=== PATIENT | male | born 1980 | race Caucasian/White ===

== ENCOUNTER → 2018-05-05 | Outpatient (CLI) | payer OTHER ==
--- NOTE | 2018-05-05 17:19 | Diagnostic Imaging Report ---
Hepatobiliary Scan with Gallbladder Ejection Fraction Clinical information: 37 M with upper abdominal pain Technique: Following intravenous administration of 7 millicuries of Tc-99m mebrofenin, dynamic images of the abdomen in the anterior projection were obtained through 30 minutes. Vwnx-gav-vwyj milk12 ounces was taken orally as a secretagogue for determination of gallbladder ejection fraction. Imaging was continued for 60 minutes. Discussion: Perfusion of the liver is normal. Extraction of tracer by the liver parenchyma is normal. Tracer appears promptly within the biliary tract. The gallbladder begins to fill at 5 minutes post injection of tracer and fills adequately. Tracer is seen in the small bowel by 30 minutes. The gallbladder ejection fraction following ingestion of the fatty drink is 29% (normal >25%). Impression: 1. Filling of the gallbladder excludes acute cystic duct obstruction/acute cholecystitis. 2. The normal gallbladder ejection fraction following the fatty drink of 29% is normal and does not support the clinical diagnosis of chronic cholecystitis/gallbladder dyskinesia. 3. Note that sincalide is temporarily unavailable. A fatty drink containing at least 11 grams fat is used as an alternative secretagogue. Signed by: Dr. Autumn Sotelo M.D. on 05/05/2018 5:15 PM
== END ==
LOC: NM 11:16
PROVIDERS: ATTEND Family Medicine
DX: R10.10 Upper abdominal pain, unspecified (principal)
CPT/HCPCS: 78227; A9537

== ENCOUNTER → 2018-05-26 | Day surgery (SDC) | payer OTHER ==
[~2018-05-26] MED LIST: DONNATAL/LIDOCAINE/MAALOX 30 ML SUSP PO NR; FENTANYL CITRATE/PF 100MCG/2 ML INJ ONE; LIDOCAINE HCL 2% LOCAL INJ 5 ML SDV VIAL INJ ONE; MIDAZOLAM HCL 5 MG/ML VIAL ONE; MORPHINE SULFATE 2 MG/ML SYR ONE; PANTOPRAZOLE INJ 80 MG in SODIUM CHLORIDE 0.9% 100 ML IV ONE; PANTOPRAZOLE SO40 MG PO; PROPOFOL IV EMULSION 10 MG/ML 50 ML VIAL ONE; SODIUM CHLORIDE 0.9% 50ML 50 ML ONE; SUCRALFATE1 GM PO; TYLENOL WITH C1 EACH PO; ZOFRAN ODT4 MG
--- NOTE | 2018-05-26 19:44 | Operative Report ---
DATE OF PROCEDURE: May 26, 2018 REFERRING PHYSICIAN: Dr. Amauri Osuna PROCEDURES PERFORMED 1. Esophagogastroduodenoscopy with biopsies. 2. Colonoscopy with polypectomy and biopsies. INDICATIONS FOR EGD: History of upper abdominal pain, nausea and vomiting. INDICATIONS FOR COLONOSCOPY: Lower abdominal pain and change in bowel habits. MEDICATION: Patient was done under MAC. Please see anesthesiologist's note. PROCEDURE: With the patient in the left lateral decubitus position, the flexible fiberoptic Olympus gastroscope was introduced into the esophagus under direct visualization without any difficulty. There was some patchy erythema noted in the distal esophagus. The GE junction appeared somewhat nodular and that was biopsied. The scope was then advanced with ease into the stomach. The mucosa overlying the antrum and the body revealed some diffuse erythema and moderate edema, and biopsies were obtained and sent to stain for H. pylori. Pylorus appeared to be of normal contour and shape. It was intubated with ease. The scope was advanced all the way to the 2nd portion of the duodenum. Biopsies were obtained from the proximal 2nd portion to rule out sprue. Mucosa overlying the duodenal bulb appeared to be within normal limits. The scope was then withdrawn back into the stomach and retroflexed. The mucosa overlying the fundus and the cardia appeared to be within normal limits. The scope was then straightened out. The stomach was decompressed. The scope was subsequently withdrawn. Patient tolerated the procedure well. IMPRESSION 1. Distal esophagitis, mild. 2. Gastroesophageal junction somewhat nodular, biopsied. 3. Gastritis, biopsied. Biopsy sent to stain for Helicobacter pylori. 4. Rule out sprue. PLAN: Follow up histology. Increase Protonix to 40 mg 1 p.o. a.c. b.i.d. Patient was then turned around. After adequate lubrication of the anal canal, a flexible fiberoptic Olympus colonoscope was inserted into the rectum with ease and advanced all the way to the cecum. A minute polyp was snared from the cecum. The ascending grossly appeared to be within normal limits. One polyp was snared from the transverse colon. The mucosa overlying the left colon and rectum revealed some patchy intense erythema and moderate to marked edema, and biopsies were obtained. One polyp was snared and one polyp was hot biopsied from the descending colon. Four polyps were snared and two polyps were hot biopsied from the sigmoid colon. The scope was then retroflexed into the distal rectum and small internal hemorrhoids were noted, none of which was actively bleeding. The scope was then straightened out. It was subsequently withdrawn. Patient tolerated the procedure well. IMPRESSION 1. Cecal polyp, snared. 2. Transverse colon polyps, snared. 3. Descending colon polyps, times 2, one snared and one hot biopsied. 4. Sigmoid colon polyps times 6, 4 snared and 2 hot biopsied. 5. Internal hemorrhoids, none actively bleeding. PLAN: Follow up histology. Initiate VSL #1 one p.o. b.i.d. and Bentyl 10 mg 1 p.o. t.i.d. Patient will need a followup colonoscopy in 1-2 years. Job#: [id number] RI cc:AMAURI OSUNA MD
[2018-05-26 19:45] VITALS: BP 122/95
[2018-05-26 19:49] LABS: BASOPHILS # (AUTO) 0.1 (0.0-0.1); EOSINOPHILS # (AUTO) 0.2 (0.0-0.4); EOSINOPHILS % 1.9 % (0.0-6.0); HEMATOCRIT 42.4 % (38.2-49.6); HEMOGLOBIN 14.9 g/dL (14.0-18.0); LYMPHOCYTES % 28.6 % (18.0-39.1); MEAN CORPUSCULAR HEMOGLOBIN 30.7 pg (28-32); MEAN CORPUSCULAR HGB CONC 35.1 g/dL (31-35); MEAN CORPUSCULAR VOLUME 87.2 fL (81-99); MONOCYTES # (AUTO) 0.8 (0.2-0.8); MONOCYTES % 7.7 % (4.4-11.3); NEUTROPHILS # (AUTO) 6.3 (2.1-6.9); NEUTROPHILS % 59.8 % (38.7-80.0); PLATELET COUNT 258 x10e3/uL (140-360); RED BLOOD COUNT 4.86 x10e6/uL (4.3-5.7); RED CELL DISTRIBUTION WIDTH 12.6 % (11.7-14.4)
[2018-05-26 20:11] LABS: ALANINE AMINOTRANSFERASE 257 IU/L (0-55); ALBUMIN 4.1 g/dL (3.5-5.0); ALBUMIN/GLOBULIN RATIO 1.1 (0.8-2.0); ALKALINE PHOSPHATASE 63 IU/L (40-150); AMYLASE 38 U/L (25-125); ANION GAP 15.6 mmol/L (8-16); BLOOD UREA NITROGEN 13 mg/dL (7-26); BUN/CREATININE RATIO 14 (6-25); CALCIUM 9.2 mg/dL (8.4-10.2); CARBON DIOXIDE 22 mmol/L (22-29); CHLORIDE 101 mmol/L (98-107); CREATININE, SERUM 0.95 mg/dL (0.72-1.25); EST GLOMERULAR FILTRATION RATE > 60 ML/MIN (60-); GLUCOSE 144 mg/dL (74-118); LIPASE 16 U/L (8-78); POTASSIUM 3.6 mmol/L (3.5-5.1); SODIUM 135 mmol/L (136-145)
[2018-05-26 20:32] LABS: THYROID STIMULATING HORMONE 2.046 uIU/mL (0.350-4.940)
--- OUTSIDE RECORDS SUMMARY | 2018-05-31 13:08 | XMS REPORT ---
Author [facility] Unknown Phone Unavailable Care Team Providers Care Behavioral Health Therapist Name Role Phone Robert OSUNA Unavailable Unavailable Payers Payer Name Policy Type Policy Number Effective Date Expiration Date Problems This patient has no known problems. Allergies, Adverse Reactions, Alerts Allergy Name Allergy Type Status Severity Reaction(s) Onset Date Inactive Date Treating Clinician Comments Penicillins DA Active SV 2018-04-20 00:00:00 Medications This patient has no known medications. Results Test Description Test Time Test Comments Text Results Atomic Results Result Comments HEPTOBILIARY W PHARM 2018-05-05 17:08:00 [place] [id number] Patient Name: ALEKSANDRA FREGOSO MR #: [id number] : 1980 Age/Sex: 37/M Req #: [id number] Adm Physician: Ordered by: AMAURI OSNUA MD Report #: [id number] Location: [place] Room/Bed: Procedure: [id number] NM/HEPTOBILIARY W PHARM Exam Date: 05/05/18 Exam Time: 1125 REPORT STATUS: Signed Hepatobiliary Scan with Gallbladder Ejection Fraction Clinical information: 37 M with upper abdominal pain Technique: Following intravenous administration of 7 millicuries of Tc-99m mebrofenin, dynamic images of the abdomen in the anterior projection were obtained through 30 minutes. Rvxu-pbw-almn milk12 ounces was taken orally as a secretagogue for determination of gallbladder ejection fraction. Imaging was continued for 60 minutes. Discussion: Perfusion of the liver is normal. Extraction of tracer by the liver parenchyma is normal. Tracer appears promptly within the biliary tract. The gallbladder begins to fill at 5 minutes post injection of tracer and fills adequately. Tracer is seen in the small bowel by 30 minutes. The gallbladder ejection fraction following ingestion of the fatty drink is 29% (normal >25%). Impression: 1. Filling of the gallbladder excludes acute cystic duct obstruction/acute cholecystitis. 2. The normal gallbladder ejection fraction following the fatty drink of 29% is normal and does not support the clinical diagnosis of chronic cholecystitis/gallbladder dyskinesia. 3. Note that sincalide is temporarily unavailable. A fatty drink containing at least 11 grams fat is used as an alternative secretagogue. Signed by: Dr. Jenny Sotelo M.D. on 05/05/2018 5:15 PM Dictated By: JENNY OSTELO MD 14 Transcribed By: CHAMP on 05/05/181714 COPY TO: AMAURI OSUNA MD
== END | disposition home or self-care (01) ==
LOC: OR 14:39
PROVIDERS: ATTEND Internal Medicine Gastroenterology
DX: K29.70 Gastritis, unspecified, without bleeding (principal); D12.0 Benign neoplasm of cecum; D12.3 Benign neoplasm of transverse colon; D12.4 Benign neoplasm of descending colon; K20.9 Esophagitis, unspecified; K59.00 Constipation, unspecified; K64.8 Other hemorrhoids; R03.0 Elevated blood-pressure reading, without diagnosis of hypertension; F32.9 Major depressive disorder, single episode, unspecified; F41.9 Anxiety disorder, unspecified; Z88.0 Allergy status to penicillin; Z68.41 Body mass index [BMI] 40.0-44.9, adult; Z80.0 Family history of malignant neoplasm of digestive organs
CPT/HCPCS: 36415; 43239; 45384; 45385; 80053; 82150; 83690; 84443; 85025; J2001; J2250; J2270; J7050; 45380

== ENCOUNTER → 2018-06-07 | Outpatient (CLI) | payer OTHER ==
[~2018-06-07] MED LIST changes: -DONNATAL/LIDOCAINE/MAALOX 30 ML SUSP PO NR; -FENTANYL CITRATE/PF 100MCG/2 ML INJ ONE; -LIDOCAINE HCL 2% LOCAL INJ 5 ML SDV VIAL INJ ONE; -MIDAZOLAM HCL 5 MG/ML VIAL ONE; -MORPHINE SULFATE 2 MG/ML SYR ONE; -PANTOPRAZOLE INJ 80 MG in SODIUM CHLORIDE 0.9% 100 ML IV ONE; -PROPOFOL IV EMULSION 10 MG/ML 50 ML VIAL ONE; -SODIUM CHLORIDE 0.9% 50ML 50 ML ONE
--- NOTE | 2018-06-07 16:31 | Diagnostic Imaging Report ---
EXAM: Right upper quadrant abdominal ultrasound INDICATION: Right upper quadrant pain COMPARISON: None. TECHNIQUE: Transverse and longitudinal images of the right upper quadrant abdomen were obtained FINDINGS: Liver: Size: Measures up to 20.3 cm in the right midclavicular line Appearance: Increased echogenicity, smooth contour Mass: No focal masses identified although incompletely evaluated due to hyperechoic liver. Gallbladder: No distension, pericholecystic fluid, wall thickening, stone, or reported sonographic Heath's sign. Gallbladder wall measures 0.2 cm. Bile Ducts: Intrahepatic Ducts: No dilatation Extrahepatic Ducts: Common bile duct measures 0.2 cm, no dilatation Pancreas: Incompletely visualized due to overlying bowel gas, but no abnormality identified involving the visualized portions of the pancreas. Kidney: The right kidney measures 15.1 cm without evidence of hydronephrosis or stone. Vessels: Aorta: Not well seen due to overlying gas. Inferior Vena Cava: Not well seen due to overlying gas Main Portal Vein: 1.3 cm, normal size with hepatopetal flow. Free Fluid: No ascites. IMPRESSION: Hepatomegaly with hepatic steatosis. No sonographic evidence of cholecystitis. Signed by: Dr. Kelley Perez MD on 06/07/2018 4:27 PM
== END ==
LOC: US 15:22
PROVIDERS: ATTEND Internal Medicine Gastroenterology
DX: R74.8 Abnormal levels of other serum enzymes (principal)
CPT/HCPCS: 76705